=== PATIENT | female | born 1965 | race Caucasian/White ===

== ENCOUNTER → 2020-06-05 | Outpatient (CLI) | payer OTHER ==
[~2020-06-05] MED LIST: CYCL10 PO; DICL25ER PO; DICY20 PO; DIPH50 PO; EPIN.3I IM; FAMO20 PO; FLUO10 PO; HYDACE10 PO; LORA1 PO; LUBIPROSTONE; OMEP20ER PO; OXYC5 PO; PRED20 PO; TOPI50 PO
[2020-06-05 15:50] LABS: Source, Urine Clean Catch
[2020-06-05 18:47] LABS: Appearance, Urine Clear (Clear); Blood, Urine 1+ (Neg); Color, Urine Amber (P-Yellow); Glucose Qualitative, Urine Neg (Neg); Ketones, Urine 1+ (Neg); Leukocyte Esterase, Urine 1+ (Neg); Nitrite, Urine Pos (Neg); Protein, Urine 1+ (Neg); Specific Gravity, Urine 1.015 (1.003-1.022); Urobilinogen, Urine 1+ (Normal); pH, Urine 6.5 (5.0-8.0)
[2020-06-05 18:52] LABS: Bilirubin, Urine 3+ (Neg)
[2020-06-05 18:53] LABS: Bacteria Many /hpf; Red Blood Cells, Urine 0-2 /hpf (0-2); Squamous Epithelial Cells Few /hpf (Few)
== END | disposition home or self-care (01) ==
LOC: LAB 15:47 → LAB SHORT 15:47
PROVIDERS: Student in an Organized Health Care Education/Training Program
DX: R35.0 Frequency of micturition (principal)
CPT/HCPCS: 81001; 87077; 87086; 87186